=== PATIENT | female | born 1970 | race Caucasian/White ===

== ENCOUNTER 2019-09-05 18:42 | Emergency (ER) | payer BC ==
[2019-09-05] MEDS ORDERED: Ibuprofen 200 MG TAB ONE (18:51)
--- NOTE | 2019-09-05 19:11 | RAD ---
Left shoulder 3 views HISTORY: Injury. FINDINGS: Acromioclavicular and glenohumeral alignment are maintained. Mild osteophytosis. No acute f racture, dislocation, or aggressive osseous erosions. IMPRESSION : Mild osteoarthritic changes left shoulder. No acute osseous abnormalities are demonstrated.
== END 2019-09-05 19:25 | disposition home or self-care (01) ==
LOC: NAV ERS 18:42
DX: S43.402A Unspecified sprain of left shoulder joint, initial encounter (principal); S80.11XA Contusion of right lower leg, initial encounter; S00.81XA Abrasion of other part of head, initial encounter; S80.212A Abrasion, left knee, initial encounter; I10 Essential (primary) hypertension; Z79.899 Other long term (current) drug therapy; V53.5XXA Driver of pick-up truck or van injured in collision with car, pick-up truck or van in traffic accident, initial encounter